=== PATIENT | female | born 1995 | race Caucasian/White ===

== ENCOUNTER 2020-06-11 04:15 | Inpatient (IN) | payer OTHER ==
[2020-06-11] MEDS ORDERED: OXYTOCIN 20 UNITS in 0.9% NS 20 UNIT/1,000 ML INFUS.BAG IV ONE ×2 (05:10→06:40)
[2020-06-11] MEDS ORDERED: LIDOCAINE HCL 1% PRESERVATIVE FREE - 30ML VIAL ONE (05:10)
[2020-06-11 05:32] LABS: BASO % 0.4 % (0-2.0); EOS % 0.4 % (0-4.5); HEMATOCRIT 39.4 % (32.4-45.2); HEMOGLOBIN 12.7 GM/dL (10.7-15.3); LYMPH % 18.3 % (8-40); MCH 30.3 pg (25.7-33.7); MCHC 32.4 g/dl (32.0-36.0); MEAN CELL VOLUME 93.8 fl (80-96); MEAN PLT VOLUME 9.2 fl (7.5-11.1); NEUT % 73.9 % (42.8-82.8); PLATELET COUNT 213 K/MM3 (134-434); RDW 13.6 % (11.6-15.6); WHITE BLOOD COUNT 12.8 K/mm3 (4.0-10.0)
[2020-06-11 06:02] LABS: BLOOD UREA NITROGEN 11.8 mg/dL (7-18); CALCIUM 9.3 mg/dL (8.5-10.1)
[2020-06-11 06:03] VITALS: BMI 31.1
[2020-06-11 06:06] LABS: CREATININE 0.5 mg/dL (0.55-1.3)
[2020-06-11] MEDS ORDERED: METHYLERGONOVINE MALEATE 0.2 MG/1 ML AMP IM PRN (06:22)
[2020-06-11] MEDS ORDERED: BENZOCAINE 20% 57 GM BOTTLE TP PRN (06:22)
[2020-06-11] MEDS ORDERED: BENZOCAINE 28 GM HEMORRHOIDAL OINTMENT TP PRN (06:22)
[2020-06-11] MEDS ORDERED: WITCH HAZEL 50% (TUCKS) 40 PAD/JAR PAD TP PRN (06:22)
[2020-06-11] MEDS ORDERED: BISACODYL 10 MG SUPP.RECT RC PRN (06:22)
[2020-06-11] MEDS ORDERED: OXYTOCIN 20 UNITS in 0.9% NS 1000 ML INFUS.BAG IV ONE ×4 (06:23→06:42)
--- NOTE | 2020-06-11 06:31 | PN ---
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 Healthy baby boy. Small epis. No circumcision.
[2020-06-11] MEDS ORDERED: DEXTROSE 5%-LACTATED RINGERS 1,000 ML IV SCH (06:45)
[2020-06-11] MEDS ORDERED: OXYTOCIN 20 UNITS in 0.9% NS 20 UNIT/1,000 ML INFUS.BAG IV SCH (06:45)
[2020-06-11] MEDS ORDERED: D5W-LR W/ 20 UNITS OXYTOCIN 20 UNIT/1,000 ML INFUS.BAG IV SCH (06:45)
[2020-06-11] MEDS ORDERED: IBUPROFEN 600 MG TABLET (FP) PO ONE (07:53)
[2020-06-11] MEDS ORDERED: ACETAMINOPHEN 325 MG TABLET (FP) ONE (07:53)
[2020-06-11] MEDS: IBUPROFEN 600 MG TABLET (FP) PO PRN (07:58)
[2020-06-11] MEDS: ACETAMINOPHEN 325 MG TABLET (FP) PO PRN (07:58)
[2020-06-11 08:45] LABS: INR 0.87 (0.83-1.09); PROTHROMBIN TIME (PATIENT) 10.6 SEC (9.7-13.0)
[2020-06-11 08:47] LABS: ACTIVATED PTT 26.3 SECONDS (25.2-36.5)
[2020-06-12 08:08] LABS: BASO % 0.3 % (0-2.0); EOS % 1.7 % (0-4.5); HEMATOCRIT 31.6 % (32.4-45.2); HEMOGLOBIN 10.4 GM/dL (10.7-15.3); LYMPH % 22.7 % (8-40); MCH 31.1 pg (25.7-33.7); MEAN CELL VOLUME 94.1 fl (80-96); MONO % 8.3 % (3.8-10.2); PLATELET COUNT 158 K/MM3 (134-434); RBC 3.36 M/mm3 (3.60-5.2); RDW 13.6 % (11.6-15.6); WHITE BLOOD COUNT 10.5 K/mm3 (4.0-10.0)
--- NOTE | 2020-06-12 08:49 | PN ---
Post Progress Note - Subjective Subjective: Doing very well. Happy. Post Day: 1 Type of Delivery: Vital Signs: Vital Signs Temperature 98.1 F 06/12/20 08:42 Pulse Rate 82 06/12/20 08:42 Respiratory Rate 17 06/12/20 08:42 Blood Pressure 114/79 06/12/20 08:42 O2 Sat by Pulse Oximetry (%) 98 06/11/20 16:03 Breast Exam: Yes: Soft Uterus: Yes: Fundus Firm Abdomen/GI: Yes: Abdomen soft Lochia: Yes: Rubra Lochia, amount: Small Extremities: Yes: Calves non-tender Perineum: Yes: Episiotomy (small, ok.) - Labs Labs: CBC WBC 10.5 K/mm3 (4.0-10.0) H 06/12/20 07:40 RBC 3.36 M/mm3 (3.60-5.2) L 06/12/20 07:40 Hgb 10.4 GM/dL (10.7-15.3) L 06/12/20 07:40 Hct 31.6 % (32.4-45.2) L D 06/12/20 07:40 MCV 94.1 fl (80-96) 06/12/20 07:40 MCH 31.1 pg (25.7-33.7) 06/12/20 07:40 MCHC 33.0 g/dl (32.0-36.0) 06/12/20 07:40 RDW 13.6 % (11.6-15.6) 06/12/20 07:40 Plt Count 158 K/MM3 (134-434) D 06/12/20 07:40 MPV 8.0 fl (7.5-11.1) D 06/12/20 07:40 Absolute Neuts (auto) 7.1 K/mm3 (1.5-8.0) 06/12/20 07:40 Neutrophils % 67.0 % (42.8-82.8) 06/12/20 07:40 Lymphocytes % 22.7 % (8-40) D 06/12/20 07:40 Monocytes % 8.3 % (3.8-10.2) 06/12/20 07:40 Eosinophils % 1.7 % (0-4.5) D 06/12/20 07:40 Basophils % 0.3 % (0-2.0) 06/12/20 07:40 Nucleated RBC % 0 % (0-0) 06/12/20 07:40 Problem List - Problems (1) Normal course Code(s): Z39.2 - ENCOUNTER FOR ROUTINE FOLLOW-UP Assessment/Plan Doing well, Wants to go home. PE WNL. Happy. Wants to go home. Instructed. Discharge. Check with peds.
--- NOTE | 2020-06-12 08:52 | DS ---
Physical Exam-TECHNOLOGY EDUCATION TEACHER Vital Signs: Vital Signs Temperature 98.1 F 06/12/20 08:42 Pulse Rate 82 06/12/20 08:42 Respiratory Rate 17 06/12/20 08:42 Blood Pressure 114/79 06/12/20 08:42 O2 Sat by Pulse Oximetry (%) 98 06/11/20 16:03 Constitutional: Yes: Well Nourished, No Distress, Calm Eyes: Yes: WNL, Conjunctiva Clear, EOM Intact HENT: Yes: WNL, Atraumatic, Normocephalic Neck: Yes: WNL, Supple, Trachea Midline Cardiovascular: Yes: WNL, Regular Rate and Rhythm Respiratory: Yes: WNL, Regular, CTA Bilaterally Gastrointestinal: Yes: WNL ...Rectal Exam: Yes: WNL Renal/: Yes: WNL Breast(s): Yes: WNL Musculoskeletal: Yes: WNL Extremities: Yes: WNL Integumentary: Yes: WNL Neurological: Yes: WNL, Alert, Oriented ...Motor Strength: WNL Psychiatric: Yes: WNL, Alert, Oriented Labs: CBC, BMP 06/12/20 07:40 06/11/20 05:20 Delivery - Delivery Vaginal Delivery: No Problems, Spontaneous Type of Anesthesia: Local Episiotomy/Laceration: Midline EBL (cc): 250 Delivery, Single - Stages of Labor Date 1st Stage Initiatied: 06/11/20 Time 1st Stage Initiated: 03:50 Date 2nd Stage Initiated: 06/11/20 Time 2nd Stage Initiated: 05:00 Date of Delivery: 06/11/20 Time of Delivery: 05:37 Time Placenta Delivered: 05:39 - Condition of Infant 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 Discharge Summary Problems reviewed: Yes Reason For Visit: LABOR ADMIT Current Active Problems Normal course (Acute) Procedures: Principal: delivery Hospital Course: WNL Condition: Good - Instructions Diet, Activity, Other Instructions: Physical activity Resume your normal everyday activity as tolerated no heavy lifting or exercise until seen by your surgeon. You may walk unlimited josé manuel of and climb stairs. You may resume driving the car when you feel safe and comfortable behind the wheel. No sexual activity as instructed. Diet There are no dietary restrictions. Eat healthy, high-fiber foods. Drink 6 to 8 glasses of liquid each day. This will assist in keeping your bowels are regular. Pain management You may take Tylenol or acetaminophen or Ibuprofen (for example, Motrin, Advil etc.) from my pain prescription medication is ordered should be taken as prescribed for moderate to severe pain. Call MD for any of the following: Severe pain not relieved by medication Fever of 101 or higher Excessive bleeding or drainage on dressing Inability to urinate Disposition: HOME - Home Medications Comprehensive Discharge Medication List: Ambulatory Orders Mv-Mn/Iron/FA/Herbal/Digestive [ One Tablet] 1 tab PO DAILY 06/11/20
[2020-06-12] MEDS: ACETAMINOPHEN 325 MG TABLET (FP) PO PRN ×2 (09:08→22:51)
[2020-06-12] MEDS: IBUPROFEN 600 MG TABLET (FP) PO PRN ×2 (09:10→22:50)
[2020-06-12] MEDS ORDERED: FLU VACCINE (FLULAVAL) PF 60 MCG/0.5 ML SYRINGE 2020-2021 IM ONE (10:00)
[2020-06-12] MEDS ORDERED: DIPHTH,PERTUSS(ACELL),TET 0.5 ML DISP.SYRIN IM ONE (10:00)
[2020-06-12] MEDS ORDERED: SENNOSIDES/DOCUSATE COMBO (SENNA PLUS) TABLET (UD) PO PRN (22:00)
[2020-06-12 22:36] VITALS: TEMP 98.2
[2020-06-13] MEDS: ACETAMINOPHEN 325 MG TABLET (FP) PO PRN (08:50)
[2020-06-13] MEDS: IBUPROFEN 600 MG TABLET (FP) PO PRN (08:51)
[2020-06-13 09:21] VITALS: BP 112/68; PULSE 79
== END 2020-06-13 18:15 | disposition home or self-care (01) | DRG 560 ==
LOC: JLDR 04:15 → J3W 15:48
PROVIDERS: ADMIT Specialist; ATTEND Specialist
PROC: 10E0XZZ Delivery of Products of Conception, External Approach (ICD-10-PCS; principal; 2020-06-11)
PROC: 0W8NXZZ Division of Female Perineum, External Approach (ICD-10-PCS; 2020-06-11)
DX: O80 Encounter for full-term uncomplicated delivery (principal); Z3A.40 40 weeks gestation of pregnancy; Z37.0 Single live birth
CPT/HCPCS: 36415; 59409; 80048; 85025; 85610; 85730; 86780; 86850; 86900; 86901; 90715; Q2036